=== PATIENT | male | born 1960 | race Caucasian/White ===

== ENCOUNTER 2016-07-22 11:15 | Emergency (ER) | payer OTHER ==
[~2016-07-22 11:15] MED LIST: GINKGO BILOBA120 MG; MULTIVITAMINS1 EAC6 PO; OSTEO BI-FLEX1 EAC5 PO; VALTREX500 M1 PO
[2016-07-22] MEDS ORDERED: PRINIVIL5 M1 PO (11:24)
== END 2016-07-22 12:46 | disposition other institution (70) ==
LOC: EDMED 11:15
DX: S11.91XA Laceration without foreign body of unspecified part of neck, initial encounter (principal); W19.XXXA Unspecified fall, initial encounter; Y92.69 Other specified industrial and construction area as the place of occurrence of the external cause; Y99.0 Civilian activity done for income or pay
CPT/HCPCS: J7030